=== PATIENT | female | born 1985 | race Caucasian/White ===

== ENCOUNTER 2019-04-09 14:34 | Emergency (ER) | payer OTHER ==
[2019-04-09 14:52] VITALS: RESP 18
[2019-04-09] MEDS ORDERED: MORPHINE SULFATE 4 MG/ML SYRINGE IV STA (14:53)
--- NOTE | 2019-04-09 14:56 | ED ---
General Adult HPI - General Chief complaint: Fall Stated complaint: Fell off ladder Time Seen by Provider: 04/09/19 14:47 Source: patient, EMS, RN notes reviewed Mode of arrival: EMS Limitations: no limitations, physical limitation - History of Present Illness Initial comments: Patient is a pleasant 33-year-old female presenting to the emergency department following a fall. Incident occurred just prior to arrival. Patient was approximate 7 feet up on a ladder. Patient fell down and landed on her right foot. Patient is unclear if she may have bumped her head. Patient has mild discomfort on the right side of the head. No neck or back pain. No chest pain or dyspnea. No abdominal pain. Patient states she also has some discomfort of her right ankle and right knee. Majority of discomfort is her right foot. - Related Data Home Medications Medication Instructions Recorded Confirmed Citalopram Hydrobromide [CeleXA] 40 mg PO DAILY 04/09/19 04/09/19 clonazePAM [KlonoPIN] 0.5 mg PO DAILY 04/09/19 04/09/19 clonazePAM [KlonoPIN] 0.75 mg PO HS 04/09/19 04/09/19 Allergies Allergy/AdvReac Type Severity Reaction Status Date / Time latex Allergy Anaphylaxis Verified 04/09/19 14:59 Penicillins Allergy Anaphylaxis Verified 04/09/19 14:59 Review of Systems ROS Statement: Those systems with pertinent positive or pertinent negative responses have been documented in the HPI. ROS Other: All systems not noted in ROS Statement are negative. Constitutional: Denies: fever Eyes: Denies: eye pain ENT: Denies: ear pain Respiratory: Denies: cough, dyspnea Cardiovascular: Denies: chest pain Endocrine: Denies: fatigue Gastrointestinal: Denies: abdominal pain Genitourinary: Denies: dysuria Musculoskeletal: Denies: back pain Skin: Denies: rash Neurological: Reports: as per HPI Past Medical History Past Medical History: No Reported History History of Any Multi-Drug Resistant Organisms: None Reported Past Surgical History: No Surgical Hx Reported Past Psychological History: No Psychological Hx Reported Smoking Status: Never smoker Past Alcohol Use History: Occasional Past Drug Use History: None Reported General Exam Limitations: no limitations, physical limitation General appearance: alert, in no apparent distress Head exam: Present: atraumatic, normocephalic Eye exam: Present: normal appearance, PERRL, EOMI ENT exam: Present: normal oropharynx Neck exam: Present: normal inspection. Absent: tenderness Respiratory exam: Present: normal lung sounds bilaterally Cardiovascular Exam: Present: regular rate, normal rhythm Expanded Peripheral pulses: 2+: Posterior Tibialis (R), Posterior Tibialis (L), Dorsalis Pedis (R), Dorsalis Pedis (L) GI/Abdominal exam: Present: soft. Absent: distended, tenderness Extremities exam: Present: full ROM, normal capillary refill, other (Minimal tenderness right knee and right ankle. Mild to moderate tenderness right first metatarsal. There is mild use foot tenderness. Distally 70s are neurovascularly intact.) Back exam: Present: normal inspection. Absent: tenderness, vertebral tenderness Neurological exam: Present: alert. Absent: motor sensory deficit Psychiatric exam: Present: normal affect, normal mood Skin exam: Present: normal color. Absent: rash Course Vital Signs 04/09/19 14:45 Temperature 98.2 F Pulse Rate 79 Respiratory 18 Rate Blood Pressure 106/76 O2 Sat by Pulse 100 Oximetry Procedures - Orthopedic Splinting/Casting Injury #1 Side: right Lower Extremity Injury Location: short leg, foot Lower Extremity Immobilizer: posterior splint Medical Decision Making - Medical Decision Making Patient reevaluated and resting comfortably in bed. Patient and mother updated on results and need for follow-up. - Radiology Data Radiology results: report reviewed (Computed tomography scan of the brain and cervical spine reveal no acute Gemelli.), image reviewed (X-ray of the right foot, right ankle, and knee show no acute abnormality.) Disposition Clinical Impression: Fall, Foot sprain, Head injury Disposition: HOME SELF-CARE Condition: Stable Instructions (If sedation given, give patient instructions): Head Injury (ED), Foot Sprain (ED) Additional Instructions: Please follow-up with primary care physician Wednesday as planned. Return for increased pain, swelling, confusion, weakness, worsening symptoms or other concerns. Ice to affected area. Use crutches. If discomfort continues consider orthopedic evaluation. [id number] Motrin as needed. Use crutches, prescription provided. Is patient prescribed a controlled substance at d/c from ED?: No Referrals: Jolie Nagel MD [Primary Care Provider] - 1-2 days Time of Disposition: 16:46
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
--- NOTE | 2019-04-09 16:16 | XR ---
EXAMINATION TYPE: XR knee complete RT DATE OF EXAM: 04/09/2019 COMPARISON: NONE HISTORY: Knee pain TECHNIQUE: 3 views FINDINGS: There is no fracture nor dislocation. Joint spaces are normal. There is no sign of knee jd nt effusion. IMPRESSION: Negative right knee exam.
--- NOTE | 2019-04-09 16:16 | XR ---
EXAMINATION TYPE: XR foot complete RT DATE OF EXAM: 04/09/2019 COMPARISON: NONE HISTORY: Foot pain TECHNIQUE: 3 views FINDINGS: Metatarsals are intact. I see no fracture nor dislocation. Joint spaces are normal. IMPRESSION: Negative right foot exam.
--- NOTE | 2019-04-09 16:17 | XR ---
EXAMINATION TYPE: XR ankle complete RT DATE OF EXAM: 04/09/2019 COMPARISON: NONE HISTORY: Ankle pain TECHNIQUE: 3 views FINDINGS: Ankle mortise is anatomic. I see no fracture nor dislocation. Joint spaces are normal. IMPRESSION: Negative right ankle exam.
[2019-04-09] MEDS ORDERED: ACET/COD 300 MG/30 MG STARTER PACK 6 TAB BTL PO STA (16:47)
[2019-04-09] MEDS ORDERED: IBUPROFEN 600 MG STARTER PACK 4 TAB BTL PO STA (16:47)
[2019-04-09 17:19] VITALS: BP 101/60; PULSE 63; TEMP 98.4
== END 2019-04-09 17:23 | disposition home or self-care (01) ==
LOC: EC 14:34
DX: S93.601A Unspecified sprain of right foot, initial encounter (principal); S09.90XA Unspecified injury of head, initial encounter; Z79.899 Other long term (current) drug therapy; Z91.040 Latex allergy status; Z88.0 Allergy status to penicillin; W11.XXXA Fall on and from ladder, initial encounter; Y92.009 Unspecified place in unspecified non-institutional (private) residence as the place of occurrence of the external cause
CPT/HCPCS: 73562; 73610; 73630; 72125; 70450; 99284; 29515; 96374; J2270

== ENCOUNTER 2020-05-18 08:21 | Emergency (ER) | payer OTHER ==
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
[2020-05-18 09:10] LABS: Basophils % (A) 0 %; Eosinophils # (A) 0.1 k/uL (0-0.7); Eosinophils % (A) 1 %; HCT 36.8 % (34.0-46.0); HGB 12.3 gm/dL (11.4-16.0); Lymphocytes # (A) 0.7 k/uL (1.0-4.8); Lymphocytes % (A) 5 %; MCH 31.9 pg (25.0-35.0); MCHC 33.4 g/dL (31.0-37.0); MCV 95.4 fL (80.0-100.0); Mean Platelet Volume 6.7; Monocytes # (A) 0.3 k/uL (0-1.0); Monocytes % (A) 2 %; Neutrophils # (A) 10.9 k/uL (1.3-7.7); Neutrophils % (A) 91 %; Platelet Count 299 k/uL (150-450); RBC 3.86 m/uL (3.80-5.40); RDW 12.4 % (11.5-15.5)
[2020-05-18 09:19] LABS: ALT 28 U/L (4-34); AST 41 U/L (14-36); African American GFR (CKD) >90 (>60 ml/min/1.73 sqM); Albumin 4.8 g/dL (3.5-5.0); Alkaline Phosphatase 44 U/L (38-126); Anion Gap 8 mmol/L; Blood Urea Nitrogen 13 mg/dL (7-17); Calcium 9.4 mg/dL (8.4-10.2); Carbon Dioxide 23 mmol/L (22-30); Chloride 107 mmol/L (98-107); Creatine Kinase 418 U/L (30-135); Glucose 83 mg/dL (74-99); Non-African American GFR(CKD) >90 (>60 ml/min/1.73 sqM); Potassium 3.9 mmol/L (3.5-5.1); Sodium 138 mmol/L (137-145); Total Bilirubin 0.5 mg/dL (0.2-1.3)
[2020-05-18 09:34] LABS: Amphetamine Screen,Urine Not Detected (NotDetected); Barbiturate Screen,Urine Not Detected (NotDetected); Benzodiazepines Screen,Urine Not Detected (NotDetected); Cocaine Screen,Urine Not Detected (NotDetected); Methadone Screen, Urine Not Detected (NotDetected); Opiate Screen,Urine Not Detected (NotDetected); Oxycodone Screen, Urine Not Detected (NotDetected); Phencyclidine Screen,Urine Not Detected (NotDetected); Tricyclic Antidepressant,Urine Not Detected (NotDetected); Urn Cannabinoid Scrn Detected (NotDetected)
[2020-05-18] MEDS ORDERED: LORazepam 2 MG/ML INJ IM STA (11:50)
[2020-05-18] MEDS ORDERED: ZIPRASIDONE 20 MG VIAL IM STA (11:50)
[2020-05-18 13:28] VITALS: BP 127/59; PULSE 79; RESP 18; TEMP 97.8
== END 2020-05-18 13:42 | disposition home or self-care (01) ==
LOC: EC 08:21
DX: F43.20 Adjustment disorder, unspecified (principal); Z79.1 Long term (current) use of non-steroidal anti-inflammatories (NSAID); Z79.899 Other long term (current) drug therapy; Z88.0 Allergy status to penicillin; Z91.040 Latex allergy status
CPT/HCPCS: 36415; 80053; 80306; 81025; 82075; 82550; 85025; 99285

== ENCOUNTER 2020-05-18 16:31 | Inpatient (IN) | payer MEDICAID, OTHER ==
--- NOTE | 2020-05-18 17:20 | ED ---
General Adult HPI - General Source: patient, RN notes reviewed, old records reviewed Mode of arrival: ambulatory Limitations: altered mental status <Humberto Sutton - Last Filed: 05/18/20 19:54> <Ricky Arndt - Last Filed: 05/19/20 02:24> <Lazaro Rosen - Last Filed: 05/20/20 17:50> - General Stated complaint: Mental Health Time Seen by Provider: 05/18/20 16:42 - History of Present Illness Initial comments: 34-year-old female with no known psychiatric history presents for repeat evaluation of bizarre behavior, delusions. Patient is hallucinating, stating that people are in the room or currently not present. She is denying any physical complaints. She is denying drugs of abuse. She does admit to drinking alcohol last night and states that she lost her job yesterday. She was seen in the emergency department earlier today with similar presentation, she returned to baseline she was alert and cooperative and ultimately discharged home. She returns today after being found in a park by police. She has been petitioned by her sister for psychiatric evaluation. (Humberto Sutton) - Related Data Home Medications Medication Instructions Recorded Confirmed Citalopram Hydrobromide [CeleXA] 20 mg PO DAILY 04/09/19 05/20/20 clonazePAM [KlonoPIN] 0.5 mg PO BID 04/09/19 05/20/20 Ibuprofen [Motrin] 800 mg PO TID-W/MEALS 05/18/20 05/20/20 Allergies Allergy/AdvReac Type Severity Reaction Status Date / Time latex Allergy Anaphylaxis Verified 05/20/20 09:08 Penicillins Allergy Anaphylaxis Verified 05/20/20 09:08 Review of Systems ROS Other: All systems not noted in ROS Statement are negative. <Humberto Sutton - Last Filed: 05/18/20 19:54> ROS Other: All systems not noted in ROS Statement are negative. <Ricky Arndt - Last Filed: 05/19/20 02:24> ROS Other: All systems not noted in ROS Statement are negative. <Lazaro Rosen - Last Filed: 05/20/20 17:50> ROS Statement: Those systems with pertinent positive or pertinent negative responses have been documented in the HPI. Past Medical History Past Medical History: No Reported History History of Any Multi-Drug Resistant Organisms: None Reported Past Surgical History: No Surgical Hx Reported Additional Past Surgical History / Comment(s): Plastic implants Past Psychological History: No Psychological Hx Reported Past Alcohol Use History: Occasional Past Drug Use History: None Reported <Humberto Sutton N - Last Filed: 05/18/20 19:54> General Exam Limitations: altered mental status General appearance: alert, in no apparent distress, anxious Head exam: Present: atraumatic, normocephalic Eye exam: Present: normal appearance, PERRL ENT exam: Present: normal exam Neck exam: Present: normal inspection. Absent: tenderness, meningismus Respiratory exam: Present: normal lung sounds bilaterally. Absent: respiratory distress, wheezes Cardiovascular Exam: Present: regular rate, normal rhythm GI/Abdominal exam: Present: soft. Absent: distended, tenderness, guarding, rebound Extremities exam: Present: normal inspection, normal capillary refill Neurological exam: Present: alert. Absent: oriented X3, motor sensory deficit Psychiatric exam: Present: anxious, other (Delusional, followed by dizziness, visual hallucination) Skin exam: Present: warm, dry, intact. Absent: cyanosis, diaphoretic <Humberto Sutton N - Last Filed: 05/18/20 19:54> Course <Humberto Sutton N - Last Filed: 05/18/20 19:54> Vital Signs 05/18/20 05/19/20 05/19/20 16:46 06:51 13:19 Temperature 98.0 F 98.8 F 99.1 F Pulse Rate 65 110 H 64 Respiratory 16 18 18 Rate Blood Pressure 124/75 98/55 111/62 O2 Sat by Pulse 99 98 100 Oximetry 05/19/20 05/20/20 05/20/20 19:58 06:25 08:00 Temperature 99.0 F 98 F Pulse Rate 82 87 Respiratory 16 16 18 Rate Blood Pressure 113/55 106/61 O2 Sat by Pulse 97 99 Oximetry 05/20/20 05/20/20 05/20/20 09:00 10:00 11:00 Temperature 98 F Pulse Rate 85 Respiratory 18 18 18 Rate Blood Pressure 108/67 O2 Sat by Pulse 99 Oximetry 05/20/20 12:00 Temperature Pulse Rate Respiratory 18 Rate Blood Pressure O2 Sat by Pulse Oximetry - Reevaluation(s) Reevaluation #1: 05/18/20 2100 Patient's care is signed out at shift change to Dr. Arndt, awaiting EPS disposition (Humberto Sutton) Procedures - Restraint - Face to Face Restraint Occurrence 1 Patient's Immediate Situation: Endangers self safety, Endangers others' safety, Endangers staff safety Patient's Reaction to the Intervention: Uncooperative, Angry, Hostile, Belligerent, Bizarre, Aggressive Patient's Medical & Behavioral Condition: Alert, Anxious, Agitated Need to Continue or Terminate Restraint or Seclusion: Continue Face to Face Eval of Restraint Date: 05/19/20 Face to Face Eval of Restraint Time: 00:06 <Ricky Arndt - Last Filed: 05/19/20 02:24> Medical Decision Making <Lazaro Rosen - Last Filed: 05/20/20 17:50> - Medical Decision Making Patient was seen by mental services with plans for admission. Patient reevaluated and resting comfortably in bed. Patient amiss to discontinuing her medications recently. Patient admits to not having clear thoughts recently. Patient was aggressive and attacking staff earlier. Positive clinical certificate completed. (Lazaro Rosen) - Lab Data Lab Results 05/18/20 Range/Units 23:47 Urine Opiates Screen Not Detected (NotDetected) Ur Oxycodone Screen Not Detected (NotDetected) Urine Methadone Screen Not Detected (NotDetected) Ur Propoxyphene Screen Not Detected (NotDetected) Ur Barbiturates Screen Not Detected (NotDetected) U Tricyclic Antidepress Not Detected (NotDetected) Ur Phencyclidine Scrn Not Detected (NotDetected) Ur Amphetamines Screen Not Detected (NotDetected) U Methamphetamines Scrn Not Detected (NotDetected) U Benzodiazepines Scrn Not Detected (NotDetected) Urine Cocaine Screen Not Detected (NotDetected) U Marijuana (THC) Screen Detected H (NotDetected) Disposition <Humberto Sutton - Last Filed: 05/18/20 19:54> <Ricky Arndt - Last Filed: 05/19/20 02:24> Is patient prescribed a controlled substance at d/c from ED?: No Decision Time: 17:50 <Lazaro Rosen - Last Filed: 05/20/20 17:50> Clinical Impression: Acute psychosis Disposition: TRANSFER TO PSYCH HOSP/UNIT
[2020-05-18] MEDS: clonazePAM 0.5 MG TAB PO STA ×2 (20:22→20:31)
[2020-05-18] MEDS ORDERED: ZIPRASIDONE 20 MG VIAL IM STA (23:55)
[2020-05-19 00:09] LABS: Amphetamine Screen,Urine Not Detected (NotDetected); Barbiturate Screen,Urine Not Detected (NotDetected); Benzodiazepines Screen,Urine Not Detected (NotDetected); Cocaine Screen,Urine Not Detected (NotDetected); Methadone Screen, Urine Not Detected (NotDetected); Opiate Screen,Urine Not Detected (NotDetected); Oxycodone Screen, Urine Not Detected (NotDetected); Phencyclidine Screen,Urine Not Detected (NotDetected); Tricyclic Antidepressant,Urine Not Detected (NotDetected); Urn Cannabinoid Scrn Detected (NotDetected)
[2020-05-19] MEDS ORDERED: LORazepam 2 MG/ML INJ IM STA (00:18)
[2020-05-19] MEDS ORDERED: diphenhydrAMINE 50 MG/ML 1 ML VIAL IM STA (00:18)
[2020-05-19] MEDS: clonazePAM 0.5 MG TAB PO SCH (20:39)
[2020-05-20] MEDS ORDERED: ACETAMINOPHEN TAB 325 MG TAB PO PRN (17:20)
[2020-05-20] MEDS ORDERED: MAG HYDROX/AL HYDROX/SIMETH 30 ML CUP PO PRN (17:20)
[2020-05-20] MEDS ORDERED: LORazepam 1 MG TAB PO PRN (17:20)
[2020-05-20] MEDS ORDERED: ZIPRASIDONE 20 MG VIAL IM PRN (17:20)
[2020-05-20] MEDS ORDERED: MAGNESIUM HYDROXIDE 2,400 MG/10 ML CUP PO PRN (17:20)
[2020-05-20] MEDS ORDERED: LORazepam 2 MG/ML INJ IM PRN (17:22)
[2020-05-20] MEDS ORDERED: LORazepam 2 MG/ML INJ IM STA (18:23)
[2020-05-20] MEDS: IBUPROFEN 800 MG TAB PO SCH (19:19)
[2020-05-20] MEDS: clonazePAM 0.5 MG TAB PO SCH (21:39)
[2020-05-21 06:36] VITALS: RESP 16
[2020-05-21 07:25] LABS: Basophils % (A) 1 %; Eosinophils # (A) 0.1 k/uL (0-0.7); Eosinophils % (A) 1 %; HCT 41.2 % (34.0-46.0); HGB 13.1 gm/dL (11.4-16.0); Lymphocytes # (A) 1.8 k/uL (1.0-4.8); Lymphocytes % (A) 37 %; MCHC 31.8 g/dL (31.0-37.0); MCV 97.5 fL (80.0-100.0); Mean Platelet Volume 6.8; Monocytes # (A) 0.3 k/uL (0-1.0); Monocytes % (A) 6 %; Neutrophils # (A) 2.6 k/uL (1.3-7.7); Neutrophils % (A) 52 %; Platelet Count 302 k/uL (150-450); RBC 4.23 m/uL (3.80-5.40); RDW 12.4 % (11.5-15.5); WBC 4.9 k/uL (3.8-10.6)
[2020-05-21 07:43] LABS: ALT 33 U/L (4-34); AST 51 U/L (14-36); African American GFR (CKD) >90 (>60 ml/min/1.73 sqM); Albumin 4.6 g/dL (3.5-5.0); Alkaline Phosphatase 47 U/L (38-126); Anion Gap 7 mmol/L; Blood Urea Nitrogen 12 mg/dL (7-17); Calcium 9.6 mg/dL (8.4-10.2); Carbon Dioxide 28 mmol/L (22-30); Chloride 102 mmol/L (98-107); Cholesterol 201 mg/dL (<200); Glucose 81 mg/dL (74-99); HDL Cholesterol 92 mg/dL (40-60); LDL Cholesterol,Calculated 82 mg/dL (0-99); Non-African American GFR(CKD) >90 (>60 ml/min/1.73 sqM); Potassium 4.1 mmol/L (3.5-5.1); Sodium 137 mmol/L (137-145); Total Bilirubin 0.9 mg/dL (0.2-1.3); Total Protein 7.2 g/dL (6.3-8.2); Triglycerides 135 mg/dL (<150)
[2020-05-21] MEDS: IBUPROFEN 800 MG TAB PO SCH ×3 (07:56→17:20)
[2020-05-21] MEDS: NICOTINE 7MG/24HR PATCH TRANSDERM SCH (07:58)
[2020-05-21 11:25] VITALS: BMI 16.9
[2020-05-21] MEDS: SERTRALINE 50 MG TAB PO SCH (11:55)
--- NOTE | 2020-05-21 12:22 | P.HP ---
Psychiatric H&P - . H&P Date: 05/21/20 History & Physical: Allergies Allergy/AdvReac Type Severity Reaction Status Date / Time latex Allergy Anaphylaxis Verified 05/20/20 09:08 Penicillins Allergy Anaphylaxis Verified 05/20/20 09:08 Vital Signs Temp 97.5 F L 05/21/20 06:35 Pulse 72 05/21/20 06:35 Resp 16 05/21/20 06:35 BP 101/65 05/21/20 06:35 Pulse Ox 99 05/21/20 06:35 Intake & Output 05/20/20 05/21/20 05/21/20 18:59 06:59 18:59 Weight 50.6 kg Laboratory Last Values WBC 4.9 k/uL (3.8-10.6) 05/21/20 06:34 RBC 4.23 m/uL (3.80-5.40) 05/21/20 06:34 Hgb 13.1 gm/dL (11.4-16.0) 05/21/20 06:34 Hct 41.2 % (34.0-46.0) 05/21/20 06:34 MCV 97.5 fL (80.0-100.0) 05/21/20 06:34 MCH 31.0 pg (25.0-35.0) 05/21/20 06:34 MCHC 31.8 g/dL (31.0-37.0) 05/21/20 06:34 RDW 12.4 % (11.5-15.5) 05/21/20 06:34 Plt Count 302 k/uL (150-450) 05/21/20 06:34 Neutrophils % 52 % 05/21/20 06:34 Lymphocytes % 37 % 05/21/20 06:34 Monocytes % 6 % 05/21/20 06:34 Eosinophils % 1 % 05/21/20 06:34 Basophils % 1 % 05/21/20 06:34 Neutrophils # 2.6 k/uL (1.3-7.7) 05/21/20 06:34 Lymphocytes # 1.8 k/uL (1.0-4.8) 05/21/20 06:34 Monocytes # 0.3 k/uL (0-1.0) 05/21/20 06:34 Eosinophils # 0.1 k/uL (0-0.7) 05/21/20 06:34 Basophils # 0.0 k/uL (0-0.2) 05/21/20 06:34 Sodium 137 mmol/L (137-145) 05/21/20 06:34 Potassium 4.1 mmol/L (3.5-5.1) 05/21/20 06:34 Chloride 102 mmol/L (98-107) 05/21/20 06:34 Carbon Dioxide 28 mmol/L (22-30) 05/21/20 06:34 Anion Gap 7 mmol/L 05/21/20 06:34 BUN 12 mg/dL (7-17) 05/21/20 06:34 Creatinine 0.68 mg/dL (0.52-1.04) 05/21/20 06:34 Est GFR (CKD-EPI)AfAm >90 (>60 ml/min/1.73 sqM) 05/21/20 06:34 Est GFR (CKD-EPI)NonAf >90 (>60 ml/min/1.73 sqM) 05/21/20 06:34 Glucose 81 mg/dL (74-99) 05/21/20 06:34 Calcium 9.6 mg/dL (8.4-10.2) 05/21/20 06:34 Total Bilirubin 0.9 mg/dL (0.2-1.3) 05/21/20 06:34 AST 51 U/L (14-36) H 05/21/20 06:34 ALT 33 U/L (4-34) 05/21/20 06:34 Alkaline Phosphatase 47 U/L (38-126) 05/21/20 06:34 Total Protein 7.2 g/dL (6.3-8.2) 05/21/20 06:34 Albumin 4.6 g/dL (3.5-5.0) 05/21/20 06:34 Triglycerides 135 mg/dL (<150) 05/21/20 06:34 Cholesterol 201 mg/dL (<200) H 05/21/20 06:34 LDL Cholesterol, Calc 82 mg/dL (0-99) 05/21/20 06:34 HDL Cholesterol 92 mg/dL (40-60) H 05/21/20 06:34 TSH 2.330 mIU/L (0.465-4.680) 05/21/20 06:34 Urine Opiates Screen Not Detected (NotDetected) 05/18/20 23:47 Ur Oxycodone Screen Not Detected (NotDetected) 05/18/20 23:47 Urine Methadone Screen Not Detected (NotDetected) 05/18/20 23:47 Ur Propoxyphene Screen Not Detected (NotDetected) 05/18/20 23:47 Ur Barbiturates Screen Not Detected (NotDetected) 05/18/20 23:47 U Tricyclic Antidepress Not Detected (NotDetected) 05/18/20 23:47 Ur Phencyclidine Scrn Not Detected (NotDetected) 05/18/20 23:47 Ur Amphetamines Screen Not Detected (NotDetected) 05/18/20 23:47 U Methamphetamines Scrn Not Detected (NotDetected) 05/18/20 23:47 U Benzodiazepines Scrn Not Detected (NotDetected) 05/18/20 23:47 Urine Cocaine Screen Not Detected (NotDetected) 05/18/20 23:47 U Marijuana (THC) Screen Detected (NotDetected) H 05/18/20 23:47 05/21/20 10:34 IDENTIFYING DATA: Patient is a 34-year-old female, who currently lives with her mother in a house has 2 boys and is single and works as a dental assistant women's basketball coach. HPI: Patient presented to the hospital yesterday with complaints of bizarre be havior and delusions. Patient was observed to be hallucinating in the ER according to ER report. Patient was making remarks that people were in the room when the were really not. Patient had admitted to the ER staff that she had lost her job recently and was previously seen in the ER earlier that day and return back to her baseline and was discharged home. Patient was later found wandering in a park by police. Patient was aggressive with ER staff and attacking staff members. Patient had admitted to discontinuing her medications recently. She was petitioned by her sister who states that she has been unaware of who her family is and has been paranoid and delusional. Patient's UDS is positive for THC. Patient was seen today wandering the hallways and was agreeable magnetic tape typewriter operator in the office. Patient was attempting to be calm and cooperative keno writer / runner however did appear to be delusional at times and paranoid speaking about her ex- and her boss thinking that she is "abusing A dderall". She also believes that her bosses out to fire her. Patient claims that she stopped her Celexa approximately 3 weeks ago and she was "feeling happy and didn't think I needed it anymore". She states that she was away on a camping trip and then stopped taking it. She claims that she has been taking her anxiety medication Klonopin at nighttime to help her with sleep. She claims her mood is "calm now". When asked more about her presentation to the hospital and what happened patient states that "I don't know why the police brought me". Patient had superficial insight. She claims that she has been unable to use of relationship in the past and states that she is taking her ex- to court and doesn't want the courts know about her admission. She believes that her sister attention during to the hospital as she is a "manipulator". She denied any history of manic episodes. She states that she is smoking cannabis daily for anxiety. She states that her sleep is "fine". She denies any depression at this time. Patient denies any suicidal or homicidal ideations intent or plan. At this time patient denies any auditory or visual hallucinations. Patient denies any flight of ideas racing thoughts and increased in goal directed behavior. Patient admits to using marijuana daily as listed above and denies any other recreational drug use. Admits to smoking cigarettes. PAST PSYCHIATRIC HISTORY: Patient states that she has a history of anxiety and depression. She states that she is previously on Klonopin 0.5 mg at night and also Celexa for anxiety and mood. Patient denies any previous psychiatric hospitalizations. Patient denies any psychiatric outpatient follow-up. Patient claims that she follows up with her primary care physician for her medications. Patient denies any history of suicide attempts in the past. PMH:denies ALLERGIES: as per EMR CHEMICAL DEPENDENCY HISTORY: as per HPI FAMILY PSYCHIATRIC/SUBSTANCE USE HISTORY: She states that her father has some form of mental illness. SOCIAL HISTORY: Patient was born and raised in [place] [facility] and claims that she completed high school. She states that she did training and currently works as a dental assistant women's basketball coach. She claims that she has to boys who she lives at home with an currently lives with her mother and is single. She denies any legal history. MENTAL STATUS EXAM: General Appearance: Patient appears to be stated age is alert, directable, and attempts to cooperate. Patient appears to have fair hygiene and grooming. Behavior: Patient is seated without any agitated behavior. Attempts to cooperate. Speech: Patient's speech is fluent and nonpressured. Mood/Affect: Patient reports their mood is "calm now", affect is congruent and constricted. Suicidality/Homicidality: Patient denies having any homicidal ideation intent or plan. Denies any suicidal ideations intent or plan Perceptions: Patient denies any visual hallucinations and denies any auditory hallucinations Though content/process: There is no evidence of any delusional thought content and thought process is linear and goal-directed. Endorses paranoia. Guarded/evasive at times. Memory and concentration: AOX3, grossly intact for the purposes of this session. Can spell "WORLD" backwards Judgment and insight: poor STRENGTHS/WEAKNESSES: strength is that patient is resilient. Weakness is that patient has poor judgment INTELLECT: average IMPRESSIONS: Psychosis unspecified, rule out secondary to cannabis use History of depressive disorder Gen. anxiety disorder Cannabis use disorder Nicotine dependence PLAN: -Patient is admitted under voluntary status to [facility] for stabilization of psychiatric symptoms and safety. Patient signed adult voluntary form and medication consent and is placed in patient's chart. -Medications : Will start patient on Risperdal 1 mg daily at bedtime for psychosis/mood stabilization/insomnia. will start patient on Zoloft 50 mg daily for mood/anxiety. -Ativan and Geodon PRN for agitation/aggression -Patient was counselled on substance abuse and desired to cut back on use -Patient was informed of the risks, benefits and side effects of the medication and patient verbally consented to taking the medications. Patient signed med consent form and was placed in chart. -Internal Medicine consult to perform medical evaluation and physical. -NRT -nicotine patch -SW on board for discharge planning. Encourage patient to participate in groups to work on coping skills. We'll likely discharge in 1-2 days back home once patient is psychiatrically stabilized. hospital tray service worker to reach out to patient's mother for further collateral information. 05/21/20 12:13
[2020-05-21 15:20] LABS: Hemoglobin A1C 4.2 % (4.0-6.0)
--- NOTE | 2020-05-21 16:23 | P.MDCNMH ---
History of Present Illness H&P Date: 05/21/20 Chief Complaint: Delusions Patient is a 34-year-old female with a known history of anxiety currently taking Klonopin at home, currently would a smoker, vaping and marijuana use was brought to the hospital by malaise as the patient has been delusional and bizarre behavior. Patient was hallucinating and stating that people are in the room currently not present. Patient was initially seen in the emergency department the day before with similar symptoms but improved back to baseline while in observation in the ER. Patient was sent home and was brought to the hospital af ter she was found by police. Patient was petitioned by her sister for psychiatric evaluation. Patient says that she has not been taking her Klonopin for the past 4 days. She is that she was on vacation with her family and thought she did not require any antidepressants or anxiety medications. Currently denied any complaints of chest pain or shortness of breath. No fever no chills. No nausea vomiting or abdominal pain or diarrhea. Currently patient is awake alert and oriented 3. Review of Systems Constitutional: Patient denies any fever or chills . No generalized weakness or weight loss. Abdomen: Patient denied nausea vomiting and diarrhea and abdominal pain. Cardiovascular: Patient denies any chest pain or short of breath no palpitati ons. Respiratory: patient denied any cough is from production. No shortness of breath Neurologic: Patient denied any numbness or tingling headache. Musculoskeletal: Patient denies any complaints of joint swelling or deformity. Skin: Negative Psychiatric: Negative Endocrine: No heat or cold intolerance. No recent weight gain. Genitourinary: No dysuria or hematuria. All other 14 point ROS negative except the above Past Medical History Past Medical History: No Reported History History of Any Multi-Drug Resistant Organisms: None Reported Past Surgical History: No Surgical Hx Reported Additional Past Surgical History / Comment(s): Plastic implants Smoking Status: Current every day smoker, Former smoker, Vaper Medications and Allergies Home Medications Medication Instructions Recorded Confirmed Type Citalopram Hydrobromide [CeleXA] 20 mg PO DAILY 04/09/19 05/20/20 History clonazePAM [KlonoPIN] 0.5 mg PO BID 04/09/19 05/20/20 History Ibuprofen [Motrin] 800 mg PO TID-W/MEALS 05/18/20 05/20/20 History Allergies Allergy/AdvReac Type Severity Reaction Status Date / Time latex Allergy Anaphylaxis Verified 05/20/20 09:08 Penicillins Allergy Anaphylaxis Verified 05/20/20 09:08 Physical Exam Vitals: Vital Signs Temp Pulse Resp BP Pulse Ox 05/21/20 06:35 97.5 F L 72 16 101/65 99 05/20/20 19:27 98.9 F 112 H 18 127/67 97 Intake and Output 05/21/20 05/21/20 05/21/20 06:59 14:59 22:59 Other: Weight 50.6 kg PHYSICAL EXAMINATION: Patient is lying in the bed comfortably, no acute distress, awake alert and oriented.. HEENT: Normocephalic. Neck is supple. Pupils reactive. Nostrils clear. Oral cavity is moist. Ears reveal no drainage. Neck reveals no JVD, carotid bruits, or thyromegaly. CHEST EXAMINATION: Trachea is central. Symmetrical expansion. Lung mustafa clear to auscultation and percussion. CARDIAC: Normal S1, S2 with no gallops. No murmurs ABDOMEN: Soft. Bowel sounds normal. No organomegaly. No abdominal bruits. Extremities: reveal no edema. No clubbing or cyanosis Neurologically awake, alert, oriented x3 with well-coordinated movements. No focal deficits noted Skin: No rash or skin lesions. Psychiatric: Coperative. Nonsuicidal Musculoskeletal: No joint swelling or deformity. Normal range of motion. Cranial Nerve Examination - Cranial Nerves Cranial Nerve I- Olfactory: Intact Cranial Nerve II- Optic: Intact Cranial Nerve III- Oculomotor: Intact Cranial Nerve IV- Trochlear: Intact Cranial Nerve V- Trigeminal: Intact Cranial Nerve - Abducens: Intact Cranial Nerve VII- Facial: Intact Cranial Nerve VIII- Auditory: Intact Cranial Nerve IX- Glossopharyngeal: Intact Cranial Nerve X- Vagus: Intact Cranial Nerve XI- Accessory: Intact Cranial Nerve XII- Hypoglossal: Intact Results CBC & Chem 7: 05/21/20 06:34 05/21/20 06:34 Labs: Abnormal Lab Results - Last 24 Hours (Table) 05/21/20 Range/Units 06:34 AST 51 H (14-36) U/L Cholesterol 201 H (<200) mg/dL HDL Cholesterol 92 H (40-60) mg/dL Assessment and Plan Assessment: Acute psychosis on admission Marijuana use Ongoing nicotine addiction Anxiety disorder Depression DVT prophylaxis with early ambulation Plan: Patient is currently on antidepressants as per psychiatric recommendations. Klonopin has been discontinued. TSH level is within normal weighs. UDS is positive for marijuana. We will continue the current management and follow closely. Further recommendations based on the clinical course. Thank you for your consult. Time with Patient: Greater than 30
[2020-05-21] MEDS: risperiDONE 1 MG TAB PO SCH (21:03)
[2020-05-22 06:30] VITALS: BP 113/79; PULSE 112; TEMP 98.2
[2020-05-22] MEDS: IBUPROFEN 800 MG TAB PO SCH ×3 (09:33→17:35)
[2020-05-22] MEDS: NICOTINE 7MG/24HR PATCH TRANSDERM SCH (09:34)
[2020-05-22] MEDS: SERTRALINE 50 MG TAB PO SCH (09:34)
--- NOTE | 2020-05-22 10:26 | P.PN ---
Progress Note - Text Progress Note Date: 05/22/20 Interval History: Patient was seen coming to group today and was speaking with another patient and was directable and agreeable to speak with press writer in the office. Shouldn't appear to be calmer today and more directable. She states that she is feeling improvement in her mood and anxiety. She states that she had a difficult time sleeping last night due to being on the bed and "was tossing and turning". She claims that she misses her family and has been talking with them on the phone. She was encouraged to do so once again today. She states she has been trying to quit a groups and participate as best as she can. She claims that she has been eating well on the unit and finding it "boring". She appeared to have mild improvement in her insight and judgment. At this time patient denies any suicidal or homical ideations, intent or plan. Patient denies any auditory, visual hallucinations and denies any paranoia or delusions. Patient denies any side effects from the medications and has been compliant with meds. Mental Status Exam: General Appearance: Patient appears to be stated age is alert, directable, and attempts to cooperate. Patient appears to have fair hygiene and grooming. Behavior: Patient is seated without any agitated behavior. Attempts to cooperate. Speech: Patient's speech is fluent and nonpressured. Mood/Affect: Patient reports their mood is "calm", affect is congruent and constricted. Suicidality/Homicidality: Patient denies having any homicidal ideation intent or plan. Denies any suicidal ideations intent or plan Perceptions: Patient denies any visual hallucinations and denies any auditory hallucinations Though content/process: There is no evidence of any delusional thought content and thought process is linear and goal-directed. Less paranoia today and more future oriented. Memory and concentration: AOX3, grossly intact for the purposes of this session. Judgment and insight: Improving mildly Assessment Psychosis unspecified, rule out secondary to cannabis use History of depressive disorder Gen. anxiety disorder Cannabis use disorder Nicotine dependence Plan: -Patient continues to meet criteria for inpatient psychiatric admission for symptom stabilization and safety. Patient has signed adult voluntary form and medication consent and was placed in patient's chart. -Medications: Continue with Risperdal 1 mg daily at bedtime for psychosis/mood stabilization/insomnia. Added the melatonin and 5 mg daily at bedtime for insomnia. Continue with Zoloft 50 mg daily for mood/anxiety. -When necessary Ativan and Geodon for agitation/aggression. -NRT - nicotine patch -SW on board for discharge planning. Encouraged the patient to participate in milieu. We'll likely discharge back home tomorrow. textile worker to reach out to patient's mother for further collateral information and to arrange for possible discharge tomorrow.
[2020-05-22] MEDS ORDERED: MELATONIN 5 MG TABLET PO SCH (21:00)
[2020-05-22] MEDS: risperiDONE 1 MG TAB PO SCH (21:12)
[2020-05-23] MEDS: NICOTINE 7MG/24HR PATCH TRANSDERM SCH (08:58)
[2020-05-23] MEDS: SERTRALINE 50 MG TAB PO SCH (08:58)
[2020-05-23] MEDS: IBUPROFEN 800 MG TAB PO SCH (08:58)
--- NOTE | 2020-05-23 10:11 | P.DS ---
Providers Date of admission: 05/20/20 17:15 Expected date of discharge: 05/23/20 Attending physician: Partha Casas MD Consults: 05/20/20 17:20 Consult Physician Routine Consulting Provider: Violet Silva Consult Reason/Comments: H&P and medical Do you want consulting provider notified?: Yes Primary care physician: Jolie Nagel - Discharge Diagnosis(es) (1) Unspecified psychosis Current Visit: Yes Status: Acute Priority: High (2) History of depression Current Visit: Yes Status: Acute Priority: Medium (3) Generalized anxiety disorder Current Visit: Yes Status: Acute Priority: Medium (4) Nicotine dependence Current Visit: Yes Status: Acute Priority: Low (5) Cannabis abuse Current Visit: Yes Status: Acute Priority: Medium Hospital Course: Admission HPI: Admission and was committed by chief underwriter "Patient is a 34-year-old female, who currently lives with her mother in a house has 2 boys and is single and works as a dental assistant administrator. Patient presented to the hospital yesterday with complaints of bizarre behavior and delusions. Patient was observed to be hallucinating in the ER according to ER report. Patient was making remarks that people were in the room when the were really not. Patient had admitted to the ER staff that she had lost her job recently and was previously seen in the ER earlier that day and return back to her baseline and was discharged home. Patient was later found wandering in a park by police. Patient was aggressive with ER staff and attacking staff members. Patient had admitted to discontinuing her medications recently. She was petitioned by her sister who states that she has been unaware of who her family is and has been paranoid and delusional. Patient's UDS is positive for THC. Patient was seen today wandering the hallways and was agreeable speech language pathology assistant in the office. Patient was attempting to be calm and cooperative chief underwriter however did appear to be delusional at times and paranoid speaking about her ex- and her boss thinking that she is "abusing Adderall". She also believes that her bosses out to fire her. Patient claims that she stopped her Celexa approximately 3 weeks ago and she was "feeling happy and didn't think I needed it anymore". She states that she was away on a camping trip and then stopped taking it. She claims that she has been taking her anxiety medication Klonopin at nighttime to help her with sleep. She claims her mood is "calm now". When asked more about her presentation to the hospital and what happened patient states that "I don't know why the police brought me". Patient had superficial insight. She claims that she has been unable to use of relationship in the past and states that she is taking her ex- to court and doesn't want the courts know about her admission. She believes that her sister attention during to the hospital as she is a "manipulator". She denied any history of manic episodes. She states that she is smoking cannabis daily for anxiety. She states that her sleep is "fine". She denies any depression at this time. Patient denies any suicidal or homicidal ideations intent or plan. At this time patient denies any auditory or visual hallucinations. Patient denies any flight of ideas racing thoughts and increased in goal directed behavior. Patient admits to using marijuana daily as listed above and denies any other recreational drug use. Admits to smoking cigarettes." Hospital course: Upon admission to the unit patient was initially paranoid however calm, directable and agreeable to commence treatment. Patient got along well with other patients on the unit and followed unit protocol. Patient was compliant with the medications and denied any side effects throughout hospital course. Patient was started on Risperdal 1 mg daily at bedtime for psychosis/mood stabilization/insomnia, Zoloft 50 mg daily for mood/anxiety and melatonin 5 mg daily at bedtime for insomnia. Patient spoke of her stressors and engaged in therapy both group and individual. Patient was also seen by medical team for history and physical exam. Throughout the course of the hospitalization patient gradually improved with regards to mood, anxiety, paranoia, sleep and became future oriented with improved insight and judgment. On the day of discharge scott pierce denied any suicidal or homicidal ideations intent or plan denied any auditory or visual hallucinations. Patient endorsed wanting to live for her children and her future. The patient claims that she does own a gun however it is locked away. Patient denied any paranoia and did not endorse any delusions. Patient does have a significant history of substance abuse and was counseled on abstaining from all substances including alcohol and marijuana. Aeronautical Engineering Teacher emphasized the strong relationship between patient's psychotic episode and her cannabis use and patient claims that she would like to cut back her use on her own at this time and verbally understood and agreed. Patient was also counseled on the medications and need for regular compliance and was encouraged to follow- up with their outpatient appointment for mental health and also for primary care. Prior to discharge a family meeting will be arranged by social sciences department chair to answer any questions and ensure safety upon discharge. Mental status exam: General Appearance: Patient appears to be stated age is thin, alert, pleasant, and cooperative. Patient is in no acute distress and has fair hygiene and grooming Behavior: Patient is calmly seated without any agitated behavior. Speech: Patient's speech is fluent and nonpressured. Mood/Affect: Patient reports their mood is "much better", affect is congruent and euthymic. Suicidality/Homicidality: Patient denies having any suicidal or homicidal ideation intent or plan. Perceptions: Patient denies any auditory or visual hallucinations. Though content/process: There is no evidence of any delusional thought content and thought process is linear and goal-directed. more future oriented Memory and concentration: AOX3, grossly intact for the purposes of this session. Can spell "WORLD" backwards correctly. Judgment and insight: Improved with guarded prognosis Impression: Psychosis unspecified, likely secondary to cannabis use History of depressive disorder Generalized anxiety disorder Cannabis abuse Nicotine dependence Plan: -Continue with discharge today as patient has improved and stabilized psychiatrically and is not currently an imminent threat to herself and/or others. -Continue medications: Continue with Risperdal 1 mg daily at bedtime for psychosis/mood stabilization/insomnia, Zoloft 50 mg daily for mood/anxiety, melatonin 5 mg nightly for insomnia. Discussed with patient the importance of medication compliance and follow-up with her outpatient provider and to discuss further with her outpatient psychiatrist the need for Risperdal and to possibly titrate down gradually while being closely monitored in the near future. -Patient was counseled on the need for medication compliance and appropriate follow-up at mental health and also primary care for medical issues. Patient verbalized understanding and agreed. -Social work to arrange for and conduct family meeting to ensure safety upon discharge and answer any questions/concerns. Social work also to arrange for patients follow up appointments for psychiatric care along with follow up with primary care provider. -Patient counseled on abstaining from recreational drugs and marijuana and alcoh ol. Was informed/educated on the adverse effects on their physical and mental health. Patient verbally agreed and understood. Patient was offered substance abuse treatment however declined at this time and wanted to cut back on her own. -Patient was instructed to return to the hospital or seek immediate medical care if their psychiatric or medical symptoms do worsen or reoccur. Allergies Allergy/AdvReac Type Severity Reaction Status Date / Time latex Allergy Anaphylaxis Verified 05/20/20 09:08 Penicillins Allergy Anaphylaxis Verified 05/20/20 09:08 Laboratory Results WBC 4.9 k/uL (3.8-10.6) 05/21/20 06:34 RBC 4.23 m/uL (3.80-5.40) 05/21/20 06:34 Hgb 13.1 gm/dL (11.4-16.0) 05/21/20 06:34 Hct 41.2 % (34.0-46.0) 05/21/20 06:34 MCV 97.5 fL (80.0-100.0) 05/21/20 06:34 MCH 31.0 pg (25.0-35.0) 05/21/20 06:34 MCHC 31.8 g/dL (31.0-37.0) 05/21/20 06:34 RDW 12.4 % (11.5-15.5) 05/21/20 06:34 Plt Count 302 k/uL (150-450) 05/21/20 06:34 Neutrophils % 52 % 05/21/20 06:34 Lymphocytes % 37 % 05/21/20 06:34 Monocytes % 6 % 05/21/20 06:34 Eosinophils % 1 % 05/21/20 06:34 Basophils % 1 % 05/21/20 06:34 Neutrophils # 2.6 k/uL (1.3-7.7) 05/21/20 06:34 Lymphocytes # 1.8 k/uL (1.0-4.8) 05/21/20 06:34 Monocytes # 0.3 k/uL (0-1.0) 05/21/20 06:34 Eosinophils # 0.1 k/uL (0-0.7) 05/21/20 06:34 Basophils # 0.0 k/uL (0-0.2) 05/21/20 06:34 Sodium 137 mmol/L (137-145) 05/21/20 06:34 Potassium 4.1 mmol/L (3.5-5.1) 05/21/20 06:34 Chloride 102 mmol/L (98-107) 05/21/20 06:34 Carbon Dioxide 28 mmol/L (22-30) 05/21/20 06:34 Anion Gap 7 mmol/L 05/21/20 06:34 BUN 12 mg/dL (7-17) 05/21/20 06:34 Creatinine 0.68 mg/dL (0.52-1.04) 05/21/20 06:34 Est GFR (CKD-EPI)AfAm >90 (>60 ml/min/1.73 sqM) 05/21/20 06:34 Est GFR (CKD-EPI)NonAf >90 (>60 ml/min/1.73 sqM) 05/21/20 06:34 Glucose 81 mg/dL (74-99) 05/21/20 06:[address] Glu mg/dL 74 05/21/20 06:34 Hemoglobin A1c 4.2 % (4.0-6.0) 05/21/20 06:34 Calcium 9.6 mg/dL (8.4-10.2) 05/21/20 06:34 Total Bilirubin 0.9 mg/dL (0.2-1.3) 05/21/20 06:34 AST 51 U/L (14-36) H 05/21/20 06:34 ALT 33 U/L (4-34) 05/21/20 06:34 Alkaline Phosphatase 47 U/L (38-126) 05/21/20 06:34 Total Protein 7.2 g/dL (6.3-8.2) 05/21/20 06:34 Albumin 4.6 g/dL (3.5-5.0) 05/21/20 06:34 Triglycerides 135 mg/dL (<150) 05/21/20 06:34 Cholesterol 201 mg/dL (<200) H 05/21/20 06:34 LDL Cholesterol, Calc 82 mg/dL (0-99) 05/21/20 06:34 HDL Cholesterol 92 mg/dL (40-60) H 05/21/20 06:34 TSH 2.330 mIU/L (0.465-4.680) 05/21/20 06:34 Urine Opiates Screen Not Detected (NotDetected) 05/18/20 23:47 Ur Oxycodone Screen Not Detected (NotDetected) 05/18/20 23:47 Urine Methadone Screen Not Detected (NotDetected) 05/18/20 23:47 Ur Propoxyphene Screen Not Detected (NotDetected) 05/18/20 23:47 Ur Barbiturates Screen Not Detected (NotDetected) 05/18/20 23:47 U Tricyclic Antidepress Not Detected (NotDetected) 05/18/20 23:47 Ur Phencyclidine Scrn Not Detected (NotDetected) 05/18/20 23:47 Ur Amphetamines Screen Not Detected (NotDetected) 05/18/20 23:47 U Methamphetamines Scrn Not Detected (NotDetected) 05/18/20 23:47 U Benzodiazepines Scrn Not Detected (NotDetected) 05/18/20 23:47 Urine Cocaine Screen Not Detected (NotDetected) 05/18/20 23:47 U Marijuana (THC) Screen Detected (NotDetected) H 05/18/20 23:47 Vital Signs Temp 98.2 F 05/22/20 06:29 Pulse 112 H 05/22/20 06:29 Resp 16 05/22/20 06:29 BP 113/79 05/22/20 06:29 Pulse Ox 100 05/22/20 06:29 Patient Condition at Discharge: Stable Plan - Discharge Summary Discharge Rx Participant: No New Discharge Prescriptions: New Nicotine 7Mg/24Hr Patch [Habitrol] 1 patch TRANSDERM DAILY 14 Days patch Melatonin 5 mg PO HS 30 Days tablet Ibuprofen [Motrin] 800 mg PO TID-W/MEALS tab risperiDONE [RisperDAL] 1 mg PO HS 30 Days tab Acetaminophen Tab [Tylenol] 650 mg PO Q4HR PRN tab PRN Reason: Pain/Discomfort Sertraline [Zoloft] 50 mg PO DAILY 30 Days tab Discontinued Citalopram Hydrobromide [CeleXA] 20 mg PO DAILY clonazePAM [KlonoPIN] 0.5 mg PO BID Ibuprofen [Motrin] 800 mg PO TID-W/MEALS Discharge Medication List Acetaminophen Tab [Tylenol] 650 mg PO Q4HR PRN tab 05/23/20 [Rx] Ibuprofen [Motrin] 800 mg PO TID-W/MEALS tab 05/23/20 [Rx] Melatonin 5 mg PO HS 30 Days tablet 05/23/20 [Rx] Nicotine 7Mg/24Hr Patch [Habitrol] 1 patch TRANSDERM DAILY 14 Days patch 05/23/20 [Rx] Sertraline [Zoloft] 50 mg PO DAILY 30 Days tab 05/23/20 [Rx] risperiDONE [RisperDAL] 1 mg PO HS 30 Days tab 05/23/20 [Rx] Follow up Appointment(s)/Referral(s): [facility] [Outside] - 1 Week (05/30/20 at 1130 am with Salvador Lopez face to face) Jolie Nagel MD [Primary Care Provider] - 1-2 days Activity/Diet/Wound Care/Special Instructions: Activity and diet as tolerated. Avoid the use of street drugs and alcohol. Take all medications as prescribed. When you are in need of refills on your medications please contact your medical provider and/or outpatient psychiatrist to have this done. Please go to scheduled outpatient appointment for aftercare treatment. If symptoms return or become worse, call the crisis line at and/or go to the nearest emergency room for evaluation. Discharge Disposition: HOME SELF-CARE
== END 2020-05-23 07:00 | disposition home or self-care (01) | DRG 897 ==
LOC: EC 16:31 → 3MHU 05-20 17:15
PROVIDERS: ADMIT Psychiatry & Neurology Psychiatry; ATTEND Psychiatry & Neurology Psychiatry
DX: F12.159 Cannabis abuse with psychotic disorder, unspecified (principal); F32.9 Major depressive disorder, single episode, unspecified; F17.210 Nicotine dependence, cigarettes, uncomplicated; F41.1 Generalized anxiety disorder; G47.00 Insomnia, unspecified; Z56.0 Unemployment, unspecified; Z79.899 Other long term (current) drug therapy; Z78.1 Physical restraint status; R45.1 Restlessness and agitation; Z71.51 Drug abuse counseling and surveillance of drug abuser; Z88.0 Allergy status to penicillin; Z91.040 Latex allergy status; F41.9 Anxiety disorder, unspecified
CPT/HCPCS: 80053; 80061; 80306; 82075; 83036; 84443; 85025; 96372; 99285